=== PATIENT | female | born 1975 | race African-American/Black ===

== ENCOUNTER 2023-04-26 08:38 | Outpatient (CLI) | payer OTHER | END 2023-04-26 23:59 | disposition home or self-care (01) | LOC: WOU 08:38 | PROVIDERS: ATTEND Specialist | DX: L59.8 Other specified disorders of the skin and subcutaneous tissue related to radiation (principal); C50.412 Malignant neoplasm of upper-outer quadrant of left female breast; C79.51 Secondary malignant neoplasm of bone; Z80.9 Family history of malignant neoplasm, unspecified; Z79.899 Other long term (current) drug therapy; N64.1 Fat necrosis of breast | CPT/HCPCS: 99214; A6209; G0463 ==

== ENCOUNTER 2023-04-28 11:09 | Outpatient (CLI) | payer OTHER | END 2023-04-28 23:59 | disposition home health service (06) | LOC: WOU 11:09 | PROVIDERS: ATTEND Specialist | DX: L59.8 Other specified disorders of the skin and subcutaneous tissue related to radiation (principal); C50.412 Malignant neoplasm of upper-outer quadrant of left female breast; C79.51 Secondary malignant neoplasm of bone; Z79.899 Other long term (current) drug therapy | CPT/HCPCS: 99214; A6209; G0463 ==

== ENCOUNTER 2023-05-19 09:53 | Outpatient (CLI) | payer OTHER | END 2023-05-19 23:59 | disposition home or self-care (01) | LOC: WOU 09:53 | PROVIDERS: ATTEND Specialist | DX: L59.8 Other specified disorders of the skin and subcutaneous tissue related to radiation (principal); C50.912 Malignant neoplasm of unspecified site of left female breast; Z92.3 Personal history of irradiation | CPT/HCPCS: 99214; A6209; G0463 ==

== ENCOUNTER 2023-05-24 09:06 | Outpatient (CLI) | payer OTHER | END 2023-05-24 23:59 | disposition home or self-care (01) | LOC: WOU 09:06 | PROVIDERS: ATTEND Specialist | DX: L59.8 Other specified disorders of the skin and subcutaneous tissue related to radiation (principal); C50.912 Malignant neoplasm of unspecified site of left female breast; Z92.3 Personal history of irradiation | CPT/HCPCS: 99214; A6209; G0463 ==